=== PATIENT | male | born 1935 | race Caucasian/White ===

== ENCOUNTER 2020-04-23 18:51 | Emergency (ER) | payer OTHER ==
[~2020-04-23] VITALS: Ht 175.3 cm; Wt 86.2 kg
[2020-04-23 19:01] VITALS: Ht 175.3 cm; Wt 86.2 kg
[2020-04-23 19:17] LABS: BASOPHIL % 1.5 % (0.2-1.5)
[2020-04-23 19:21] LABS: PLATELET COUNT 463 x10^3mcL (152-348); RED CELL DISTRIBUTION WIDTH 17.6 % (12.1-16.2)
[2020-04-23 19:22] LABS: CALCIUM 8.8 mg/dL (8.5-10.1); CARBON DIOXIDE 29.2 mmol/L (21-32); CHLORIDE SERUM 101 mmol/L (98-107); CREATININE SERUM 2.8 mg/dL (0.7-1.3); GLUCOSE SERUM 100 mg/dL (74-106); POTASSIUM SERUM 4.4 mmol/L (3.5-5.1); SODIUM SERUM 138 mmol/L (136-145)
[2020-04-23 19:26] LABS: ALKALINE PHOSPHATASE 120 U/L (46-116); ALT/SGPT 39 U/L (16-63); AST/SGOT 30 U/L (15-37); TOTAL PROTEIN, SERUM 7.5 g/dL (6.4-8.2)
[2020-04-23 19:27] LABS: ALBUMIN 3.2 g/dL (3.4-5.0); CHOLESTEROL 126 mg/dL (<200)
[2020-04-23 23:42] VITALS: BP 123/69
== END 2020-04-23 23:42 | disposition short-term general hospital (02) ==
LOC: ED 18:51
PROVIDERS: Emergency Medicine
DX: R56.9 Unspecified convulsions (principal); G93.40 Encephalopathy, unspecified; D64.9 Anemia, unspecified; I13.2 Hypertensive heart and chronic kidney disease with heart failure and with stage 5 chronic kidney disease, or end stage renal disease; N18.6 End stage renal disease; E78.5 Hyperlipidemia, unspecified; Z99.2 Dependence on renal dialysis; Z20.822 Contact with and (suspected) exposure to COVID-19; Z88.0 Allergy status to penicillin
CPT/HCPCS: 82962; G0480; J1953; Q9967; U0003